=== PATIENT | female | born 1950 | race Caucasian/White ===

== ENCOUNTER 2016-09-14 16:02 | Emergency (ER) | payer OTHER ==
[2016-09-14 16:26] VITALS: BP 126/67; PULSE 77; TEMP 97.9; BMI 23.8
[2016-09-14] MEDS ORDERED: LIDOCAINE HCL 1%, 10 MG/ML (50 mL VIAL) SQ ONE (19:06)
--- NOTE | 2016-09-14 19:06 | PDOC ---
History of Present Illness - General Chief Complaint: Wound Infection Stated Complaint: ABCESS/sent by Dr Muñoz Time Seen by Provider: 09/14/16 18:46 History Source: Patient Exam Limitations: No Limitations - History of Present Illness Initial Comments: 09/14/16 19:45 66-year-old female with a history of hypertension presents to the emergency department complaining of an ongoing abscess to her left posterior mid thigh 12 days. Patient states she was seen by her PMD/Dr. Pavel Muñoz and was put on Keflex 500 mg 1 tab by mouth 3 times a day. Patient's been taking it for the past 4 days and has noticed the redness/pain has increased. Patient saw her PMD again today who referred her to the emergency department for an I&D. Patient admits to subjective fever but no chills. She denies nausea/vomiting, chest pain , shortness of breath, extremity numbness or tingling sensation. Timing/Duration: other (x12d) Associated Symptoms: reports: denies symptoms Past History - Past Medical History Allergies/Adverse Reactions: Allergies Allergy/AdvReac Type Severity Reaction Status Date / Time No Known Allergies Allergy Unverified 09/14/16 16:26 Home Medications: Ambulatory Orders Amlodipine/Valsartan [Exforge 10-320 Mg Tablet] 1 each PO DAILY tablet Trazodone HCl 100 mg PO DAILY tablet 11/23/13 HTN: Yes - Surgical History Cardiac Surgery: Yes - Psycho/Social/Smoking Cessation Hx Suicidal Ideation: No Smoking History: Never smoked Information on smoking cessation initiated: No Hx Alcohol Use: No Drug/Substance Use Hx: No Substance Use Type: None Review of Systems - Review of Systems Able to Perform ROS?: Yes Comments:: 09/14/16 19:44 CONSTITUTIONAL: Absent: fever, chills, diaphoresis, generalized weakness, malaise, loss of appetite MUSCULOSKELETAL: Absent: myalgia, arthralgia, joint swelling SKIN: Left mid posterior thigh redness/pain Absent: rash, itching, pallor HEMATOLOGIC/IMMUNOLOGIC: Absent: easy bleeding, easy bruising, lymphadenopathy, frequent infections Is the patient limited Frisian proficient: No *Physical Exam - Vital Signs Last Vital Signs Temp Pulse Resp BP Pulse Ox 97.9 F 77 18 126/67 100 09/14/16 16:24 09/14/16 16:24 09/14/16 16:24 09/14/16 16:24 09/14/16 16:24 - Physical Exam Comments: 09/14/16 19:45 GENERAL: Well developed, well nourished. Awake and alert. No acute distress. MUSCULOSKELETAL Normal range of motion at all joints. No bony deformities or tenderness. No CVA tenderness. EXTREMITIES: No cyanosis. No clubbing. No edema. No calf tenderness. SKIN: Warm and dry. Normal capillary refill. No rashes. No jaundice. Left posterior mid thigh 3cm redness/+pain on palp with fluctulant Neg lymphangitis *DC/Admit/Observation/Transfer Diagnosis at time of Disposition: Abscess of left thigh - Discharge Dispostion Disposition: HOME Condition at time of disposition: Stable Admit: No - Referrals Referrals: Pedro Pablo Forrest MD [Primary Care Provider] - Daneil Baker MD [Staff Physician] - - Patient Instructions Printed Discharge Instructions: DI for Wound Infection, DI for Skin Abscess Additional Instructions: Warm compress to the incision on your left leg 5-6 times daily for approximately 20 minutes each time. Take Tylenol or Motrin as needed for pain Follow-up and emergency department in 2 days for wound check and packing removal If the packing falls out prior to 2 days from now, do not repack it. Follow-up with the general surgeon listed on your discharge as needed Return back to the emergency department if the redness passes the pen andria on your leg, fever/chills, persistent/worsening symptoms. Progress Note - Progress Note Progress Note: Left mid posterior thigh Betadine prep 1% lidocaine=7cc I&D #10 blade + Copious purulent discharge/culture sent NS irrigation
[2016-09-14] MEDS ORDERED: SULFAMETHOXAZOLE/TRIMETHOPRIM 800MG/160MG D.S. TABLET PO ONE (19:53)
[2016-09-14] MEDS ORDERED: CLINDAMYCIN HCL 150 MG CAPSULE (FP) PO ONE (19:53)
[2016-09-14] MEDS ORDERED: SULFAMETHOXAZOLE/TRIMETHOPRIM 800MG/160MG D.S. TABLET ONE (20:05)
[2016-09-14] MEDS ORDERED: CLINDAMYCIN HCL 150 MG CAPSULE (FP) ONE (20:06)
== END 2016-09-14 20:42 | disposition home or self-care (01) ==
LOC: JER 16:02
PROC: 0H9JXZZ Drainage of Left Upper Leg Skin, External Approach (ICD-10-PCS; principal; 2016-09-14)
DX: L02.416 Cutaneous abscess of left lower limb (principal); I10 Essential (primary) hypertension
CPT/HCPCS: 99281-25

== ENCOUNTER 2016-09-16 15:33 | Emergency (ER) | payer OTHER ==
[2016-09-16 15:38] VITALS: BP 123/65; PULSE 65; TEMP 98; BMI 23.8
--- NOTE | 2016-09-16 16:43 | PDOC ---
Suture Removal/Wound Check HPI - History of Present Illness Chief Complaint: Revisit,Wound Recheck Stated Complaint: REVISIT Time Seen by Provider: 09/16/16 16:25 History Source: Yes: Patient, Spouse Exam Limitations: Yes: No Limitations Treated at: [facility] ED - Previous ED Treatment Type of procedure performed on last visit: Yes: I&D of Abscess Antibiotics Prescribed: Yes Past History - Travel Traveled outside of the country in the last 30 days: No Close contact w/someone who was outside of country & ill: No - Past Medical History Allergies/Adverse Reactions: Allergies No Known Allergies Allergy (Unverified 09/16/16 15:38) Home Medications: Ambulatory Orders Amlodipine/Valsartan [Exforge 10-320 Mg Tablet] 1 each PO DAILY tablet Trazodone HCl 100 mg PO DAILY tablet 11/23/13 Clindamycin [Cleocin -] 300 mg PO TID #21 capsule 09/14/16 Sulfamethoxazole/Trimethoprim [Bactrim Ds -] 1 tab PO BID #14 tablet 09/14/16 General: Yes: no pertinent history - Social History Smoking Status: Never smoked Suture Removal/Wound Check PE - Physical Exam Laceration/Wound Check Symptoms: reports: None. denies: Fever, Chills Comments: 09/16/16 16:51 States wound has much improved, less pain, swelling, and change dressing only once since incision and drainage occurred. Is taking both Bactrim and clindamycin as prescribed, has used ibuprofen for pain relief Current Severity Level: None Maximum Severity Level: None Procedures - Incision and Drainage I&D Site: Left: Leg (this packing removed, revealing scant amount of purulent drainage. Slightly 1 cm, approximating well) Iodinated Packin/ in Complications: none Dressing: Yes *DC/Admit/Observation/Transfer Diagnosis at time of Disposition: Encounter for wound re-check - Discharge Dispostion Disposition: HOME Condition at time of disposition: Stable Admit: No - Referrals Referrals: Pavel Muñoz MD [Primary Care Provider] - - Patient Instructions Additional Instructions: Rest, keep area elevated. Avoid strenuous activity or exercise until wound is healed Use hot soaks to area to bring more blood to the surface and encourage drainage May change dressings as needed to keep clean - trying to avoid removal of packing for 2 days. If packing needs to be removed, then in 2 days, while in the shower remove dressing and quickly pull the packing taken out. Allow water from shower to wash area thoroughly for 2-3 minutes, and pat dry upon exit of shower and replace dressing. Change his dressing daily until the wound is completely healed. May use Tylenol or Motrin for mild pain relief Continue all medications as prescribed- Clindamycin tablet 3 times a day until completed. May stop Bactrim=sulfa trimethoprim Followup with private physician in 2-3 days for wound check Return to emergency Department for worsening swelling, pain, redness, fevers as needed - Post Discharge Activity
== END 2016-09-16 17:26 | disposition home or self-care (01) ==
LOC: JERFT 15:33
DX: Z09 Encounter for follow-up examination after completed treatment for conditions other than malignant neoplasm (principal)
CPT/HCPCS: 99281-25